=== PATIENT | female | born 1955 | race Caucasian/White ===

== ENCOUNTER 2017-09-30 09:24 | Emergency (ER) | payer MEDICARE ==
[~2017-09-30] VITALS: Ht 170.2 cm; Wt 90.3 kg
[~2017-09-30 09:24] MED LIST: AMITIZA24 MCG PO; AMLODIPINE BESY10 MG PO; ASPIRIN CHEW81 MG PO; ATORVASTATIN CA20 MG PO; BACTRIM DS TAB1 EACH PO; CARAFATE1 GM PO; CLOMIPRAMINE HC50 MG PO; CLONAZEPAM2 MG PO; CLONIDINE HCL0.1 MG PO; DICYCLOMINE HCL20 MG PO; DIVALPROEX SOD500 MG PO; ENALAPRIL MALEA20 MG PO; FOLIC ACID1 MG PO; FUROSEMIDE40 MG PO; GLUCOPHAGE500 MG PO; KLONOPIN2 MG PO; METOCLOPRAMIDE10 MG PO; MOTRIN200 MG PO; NASONEX17 GM; ONDANSETRON ODT8 MG PO; OXYBUTYNIN CHLO10 MG; PANTOPRAZOLE SO40 MG PO; PROBIOTIC FORM1 EACH PO; SERTRALINE HCL100 MG PO; SULFASALAZINE500 MG PO; SYNTHROID50 MCG PO; TRAZODONE HCL100 MG PO; TRICOR145 MG PO; VASOTEC10 MG PO; VASOTEC5 MG PO; ZOFRAN ODT4 MG SL
[2017-09-30 11:44] LABS: BILIRUBIN,URINE NEGATIVE (NEGATIVE); KETONES,URINE NEGATIVE (NEGATIVE); LEUKOCYTE ESTERASE ,URINE NEGATIVE (NEGATIVE); NITRITE,URINE NEGATIVE (NEGATIVE); PROTEIN,URINE DIPSTICK NEGATIVE (NEGATIVE); URINE UROBILINOGEN 0.2 mg/dL (0.2 - 1)
[2017-09-30 12:00] LABS: CLARITY,URINE CLEAR (CLEAR); COLOR,URINE YELLOW (YELLOW); EPITHELIAL CELLS,URINE RARE /LPF; RBC,URINE 0-5 /HPF (0-5)
--- NOTE | 2017-09-30 13:13 | Diagnostic Imaging Report ---
PROCEDURE: CT ABDOMEN AND PELVIS WITHOUT CONTRAST COMPARISON:None. INDICATIONS:Right flank pain. TECHNIQUE: Stone protocol Volumetric CT abdomen and pelvis. No intravenous or enteric contrast. Multiplanar reformatted images. DLP: 736.18 FINDINGS: Clear lung bases. No pleural effusions. Normal heart size. Marked right coronary calcification. Liver: Normal Gallbladder: Cholecystectomy. No bile duct dilation. Pancreas: Normal Spleen: Normal Adrenal glands: Normal Ureters and urinary bladder: Normal Uterus and adnexa: Normal Right kidney: 6 mm right superior pole nonobstructed nephrolithiasis. Otherwise, normal. Left kidney: 4 and 3 mm nonobstructive nephrolithiasis at the left mid and inferior pole respectively. 1.6 cm mid pole cyst. Other low attenuation nodule statistically in keeping with cysts, but too small to characterize. Otherwise, normal. Bowel: Normal caliber. Mild sigmoid diverticulosis. Peritoneum: Normal Vasculature: Normal caliber. Mild atherosclerosis of the abdominal aorta. Moderate atherosclerosis of the proximal SMA and renal artery ostia. Less than 1 cm coarsely calcified splenic artery aneurysm (image 96, series 400). Lymph nodes: Normal Skeleton: Acutely intact. Mild multilevel degenerative disc disease and facet arthropathy. L1 superior endplate degenerative change versus chronic insufficiency fracture. Soft tissues: Normal CONCLUSION: 1. Bilateral nonobstructive nephrolithiasis without acute abnormality. Largest stone 6 mm on the right and 4 mm on the left 2. Diverticulosis. Dictated by: Elías Smith M.D. on 09/30/2017 at 13:22 Electronically approved by: Elías Smith M.D. on 09/30/2017 at 13:22
[2017-09-30] MEDS ORDERED: CLONIDINE HCL 0.1 MG TAB ONE (13:35)
[2017-09-30] MEDS ORDERED: CLONIDINE HCL 0.1 MG TAB PO ONE (13:45)
[2017-09-30 13:59] LABS: BASOPHILS % 0.6 % (0.0-1.0); EOSINOPHILS # (AUTO) 0.2 (0.0-0.4); EOSINOPHILS % 2.8 % (0.0-6.0); HEMATOCRIT 36.6 % (34.2-44.1); LYMPHOCYTES % 31.4 % (18.0-39.1); MEAN CORPUSCULAR HGB CONC 32.8 g/dL (31-35); MEAN CORPUSCULAR VOLUME 85.5 fL (81-99); MONOCYTES # (AUTO) 0.4 (0.2-0.8); MONOCYTES % 6.5 % (4.4-11.3); NEUTROPHILS # (AUTO) 3.8 (2.1-6.9); NEUTROPHILS % 58.2 % (38.7-80.0); PLATELET COUNT 280 x10e3/uL (140-360); RED BLOOD COUNT 4.28 x10e6/uL (3.6-5.1)
[2017-09-30 14:24] LABS: ALANINE AMINOTRANSFERASE 15 IU/L (0-55); ALBUMIN 3.9 g/dL (3.5-5.0); ALKALINE PHOSPHATASE 101 IU/L (40-150); ANION GAP 12.8 mmol/L (8-16); BLOOD UREA NITROGEN 18 mg/dL (7-26); BUN/CREATININE RATIO 21 (6-25); CALCIUM 9.2 mg/dL (8.4-10.2); CARBON DIOXIDE 28 mmol/L (22-29); CHLORIDE 102 mmol/L (98-107); CREATININE, SERUM 0.86 mg/dL (0.57-1.11); EST GLOMERULAR FILTRATION RATE > 60 ML/MIN (60-); GLUCOSE 143 mg/dL (74-118); POTASSIUM 3.8 mmol/L (3.5-5.1); SODIUM 139 mmol/L (136-145)
[2017-09-30] MEDS ORDERED: HYDROMORPHONE 1MG/1ML INJ IV STA (16:08)
[2017-09-30] MEDS ORDERED: ONDANSETRON HCL INJ 2 MG/ML VIAL IV STA (16:08)
[2017-09-30 16:32] VITALS: BP 183/92
== END 2017-09-30 16:40 | disposition home or self-care (01) ==
LOC: ER 09:24
DX: M54.5 Low back pain (principal); N20.0 Calculus of kidney; I10 Essential (primary) hypertension; E11.9 Type 2 diabetes mellitus without complications; E03.9 Hypothyroidism, unspecified; G40.909 Epilepsy, unspecified, not intractable, without status epilepticus
CPT/HCPCS: 36415; 74176; 80053; 81001; 85025; 87086; 99284; J1170; J2405

== ENCOUNTER 2017-10-04 12:53 | Emergency (ER) | payer MEDICARE ==
[~2017-10-04] VITALS: Ht 170.2 cm; Wt 89.8 kg
[2017-10-04] MEDS ORDERED: KETOROLAC TROMETHAMINE 60 MG/2 ML VIAL IM ONE (15:00)
[2017-10-04 16:05] VITALS: BP 168/96
--- NOTE | 2017-10-04 17:35 | Diagnostic Imaging Report ---
Examination: Single AP view of the chest. COMPARISON: Single chest 05/26/2017 INDICATION: None. IMPRESSION: 1. Lines and Tubes: None 2. Lungs are grossly clear. No consolidation or effusion. 3. Cardiomediastinal silhouette is normal. Pulmonary vasculature is normal. 4. No acute bony abnormalities. Signed by: Dr. Anil Leach M.D. on 10/04/2017 5:32 PM
== END 2017-10-04 16:10 | disposition home or self-care (01) ==
LOC: ER 12:53
DX: R05 Cough (principal); J09.X2 Influenza due to identified novel influenza A virus with other respiratory manifestations; I10 Essential (primary) hypertension; E11.9 Type 2 diabetes mellitus without complications; E03.9 Hypothyroidism, unspecified
CPT/HCPCS: 71010; 87400; 96372; 99283; J1885

== ENCOUNTER 2018-03-26 13:10 | Observation (INO) | payer MEDICARE ==
[~2018-03-26] VITALS: Ht 170.2 cm; Wt 87.1 kg
[2018-03-26] MEDS ORDERED: SODIUM CHLORIDE 0.9% 1000ML 1,000 ML IV STA (13:20)
[2018-03-26 14:18] LABS: BASOPHILS % 0.7 % (0.0-1.0); EOSINOPHILS # (AUTO) 0.3 (0.0-0.4); EOSINOPHILS % 5.3 % (0.0-6.0); HEMATOCRIT 32.4 % (34.2-44.1); HEMOGLOBIN 10.4 g/dL (12.0-16.0); LYMPHOCYTES # (AUTO) 1.8 (1.0-3.2); LYMPHOCYTES % 31.2 % (18.0-39.1); MEAN CORPUSCULAR HEMOGLOBIN 28.7 pg (28-32); MEAN CORPUSCULAR HGB CONC 32.1 g/dL (31-35); MEAN CORPUSCULAR VOLUME 89.3 fL (81-99); MONOCYTES # (AUTO) 0.5 (0.2-0.8); MONOCYTES % 7.8 % (4.4-11.3); NEUTROPHILS # (AUTO) 3.2 (2.1-6.9); NEUTROPHILS % 54.3 % (38.7-80.0); PLATELET COUNT 278 x10e3/uL (140-360); RED BLOOD COUNT 3.63 x10e6/uL (3.6-5.1); RED CELL DISTRIBUTION WIDTH 13.1 % (11.7-14.4)
--- NOTE | 2018-03-26 14:20 | Diagnostic Imaging Report ---
EXAMINATION: CHEST SINGLE (PORTABLE) INDICATION: Overdose. COMPARISON: Chest x-ray 10/04/2017 FINDINGS: AP view TUBES and LINES: None. LUNGS: Lungs are not well inflated. Perihilar vascular crowding. There is no evidence of pneumonia or pulmonary edema. PLEURA: No pleural effusion or pneumothorax. HEART AND MEDIASTINUM: The cardiomediastinal silhouette is unremarkable. There are atherosclerotic calcifications within the aorta. BONES AND SOFT TISSUES: No acute osseous lesion. Soft tissues are unremarkable. UPPER ABDOMEN: No free air under the diaphragm. IMPRESSION: Hypoinflated lungs with perihilar vascular crowding. Signed by: Dr. Adalberto Gunderson M.D. on 03/26/2018 2:17 PM
[2018-03-26 14:24] LABS: BILIRUBIN,URINE NEGATIVE (NEGATIVE); CLARITY,URINE SL CLOUDY (CLEAR); COLOR,URINE YELLOW (YELLOW); KETONES,URINE NEGATIVE (NEGATIVE); LEUKOCYTE ESTERASE ,URINE NEGATIVE (NEGATIVE); NITRITE,URINE NEGATIVE (NEGATIVE); PROTEIN,URINE DIPSTICK NEGATIVE (NEGATIVE); URINE UROBILINOGEN 0.2 mg/dL (0.2 - 1)
[2018-03-26 14:25] LABS: AMPHETAMINES SCREEN,URINE NEGATIVE (NEGATIVE); BENZODIAZEPINES SCREEN,URINE POSITIVE (NEGATIVE); PHENCYCLIDINE SCREEN,URINE NEGATIVE (NEGATIVE)
[2018-03-26 14:32] LABS: BACTERIA,URINE FEW /HPF; EPITHELIAL CELLS,URINE MODERATE /LPF; MUCUS,URINE MODERATE (RARE); RBC,URINE 0-5 /HPF (0-5); WBC,URINE (MAN) 0-5 /HPF (0-5)
[2018-03-26 14:38] LABS: ALANINE AMINOTRANSFERASE 11 IU/L (0-55); ALBUMIN/GLOBULIN RATIO 1.2 (0.8-2.0); ALKALINE PHOSPHATASE 54 IU/L (40-150); BLOOD UREA NITROGEN 35 mg/dL (7-26); BUN/CREATININE RATIO 22 (6-25); CALCIUM 9.3 mg/dL (8.4-10.2); CARBON DIOXIDE 21 mmol/L (22-29); CHLORIDE 105 mmol/L (98-107); CREATINE KINASE 23 IU/L (29-168); CREATININE, SERUM 1.57 mg/dL (0.57-1.11); EST GLOMERULAR FILTRATION RATE 33 ML/MIN (60-); GLUCOSE 147 mg/dL (74-118); LIPASE 54 U/L (8-78); MAGNESIUM 1.7 MG/DL (1.3-2.1); SODIUM 138 mmol/L (136-145)
[2018-03-26 14:52] LABS: INR 1.15; PROTHROMBIN TIME 13.8 seconds (11.9-14.5)
[2018-03-26 14:53] LABS: PARTIAL THROMBOPLASTIN TIME 33.6 seconds (23.8-35.5)
[2018-03-26 14:57] LABS: THYROID STIMULATING HORMONE 2.733 uIU/mL (0.350-4.940); VALPROIC ACID < 2 ug/mL (50-100)
[2018-03-26] MEDS ORDERED: DEXTROSE 50% SYRINGE 50 ML IV PRN (16:30)
[2018-03-26] MEDS ORDERED: ONDANSETRON HCL INJ 2 MG/ML VIAL IV PRN (16:30)
[2018-03-26] MEDS: SODIUM CHLORIDE 0.9% 1000ML 1,000 ML IV SCH (16:41)
[2018-03-26] MEDS: SODIUM CHLORIDE 0.9% IV SCH (16:42)
[2018-03-26] MEDS: VALPROATE SOD IV SCH (16:42)
[2018-03-26 16:54] LABS: HYPOCHROMASIA SLIGHT; PLATELET ESTIMATE ADEQUATE; PLATELET MORPHOLOGY COMMENT RARE EDTA CLUMPING; RBC MORPHOLOGY COMMENT NORMAL
[2018-03-26] MEDS: INSULIN REGULAR, HUMAN 100 UNIT/1 ML 3ML VIAL SQ SCH ×2 (16:55→21:00)
[2018-03-26 18:15] VITALS: BP 198/92
[2018-03-26 18:20] VITALS: BP 198/92
[2018-03-26 20:00] VITALS: BP 172/87
[2018-03-26] MEDS ORDERED: ENALAPRIL MALEATE 10 MG TAB PO SCH (21:00)
[2018-03-27] VITALS: BP 163/76
[2018-03-27] MEDS: DIPHENHYDRAMINE HCL 25 MG CAP PO PRN ×2 (00:37→08:55)
[2018-03-27] MEDS: SODIUM CHLORIDE 0.9% 1000ML 1,000 ML IV SCH ×2 (00:55→05:38)
[2018-03-27 01:19] LABS: CREATINE KINASE MB 0.5 ng/mL (0-5.0)
[2018-03-27 04:00] VITALS: BP 194/92
[2018-03-27 06:57] LABS: BASOPHILS % 0.5 % (0.0-1.0); EOSINOPHILS # (AUTO) 0.5 (0.0-0.4); EOSINOPHILS % 8.3 % (0.0-6.0); HEMATOCRIT 28.4 % (34.2-44.1); HEMOGLOBIN 9.4 g/dL (12.0-16.0); LYMPHOCYTES % 33.6 % (18.0-39.1); MEAN CORPUSCULAR HEMOGLOBIN 28.9 pg (28-32); MEAN CORPUSCULAR HGB CONC 33.1 g/dL (31-35); MEAN CORPUSCULAR VOLUME 87.4 fL (81-99); MONOCYTES # (AUTO) 0.5 (0.2-0.8); MONOCYTES % 8.1 % (4.4-11.3); NEUTROPHILS % 49.2 % (38.7-80.0); PLATELET COUNT 290 x10e3/uL (140-360); RED BLOOD COUNT 3.25 x10e6/uL (3.6-5.1); RED CELL DISTRIBUTION WIDTH 13.1 % (11.7-14.4)
[2018-03-27 07:02] VITALS: BP 181/89
[2018-03-27 07:19] LABS: ANION GAP 13.5 mmol/L (8-16); CALCIUM 8.9 mg/dL (8.4-10.2); CREATININE, SERUM 1.05 mg/dL (0.57-1.11); POTASSIUM 4.5 mmol/L (3.5-5.1)
[2018-03-27] MEDS: INSULIN REGULAR, HUMAN 100 UNIT/1 ML 3ML VIAL SQ SCH ×2 (07:30→11:30)
[2018-03-27 07:42] VITALS: BP 181/89
[2018-03-27 07:43] LABS: CREATINE KINASE MB 0.4 ng/mL (0-5.0)
[2018-03-27] MEDS: VALPROATE SOD IV SCH (08:55)
[2018-03-27] MEDS: SODIUM CHLORIDE 0.9% IV SCH (08:55)
[2018-03-27] MEDS ORDERED: DEPAKOTE DELAYED-RELEASE TAB 500 MG PO SCH ×2 (09:00)
[2018-03-27] MEDS ORDERED: CLONIDINE HCL 0.1 MG TAB PO SCH (09:00)
[2018-03-27] MEDS ORDERED: FUROSEMIDE 40 MG TAB PO SCH (09:00)
[2018-03-27 11:54] VITALS: BP 105/73
--- NOTE | 2018-03-27 15:23 | Discharge Summary ---
PAM YANG, LENGTH 4:48 JANUARY CORREA MD Job#: [id number] [place]
--- NOTE | 2018-03-27 15:41 | History and Physical ---
ADMITTING DIAGNOSES 1. Syncope. 2. Hypotension. 3. Acute renal failure. 4. Seizure disorder. 5. Polysubstance abuse. DISCHARGE DIAGNOSES 1. Near syncope, resolved. 2. Hypotension, resolved. 3. Hypertensive heart disease. 4. Acute renal failure, resolved. 5. Polysubstance abuse. 6. Seizure disorder. 7. Subtherapeutic Depakote level. HOSPITAL COURSE/HISTORY OF PRESENT ILLNESS: This is a 62-year-old white woman who presented to [facility] emergency room with complaints of altered mentation, as well as 2 episodes of near syncope. The most recent episode occurred on the day of admission, and the previous episode was 2 days prior to admission at her psychiatrist's office. The patient states she never actually lost consciousness, but felt very lightheaded and weak, which caused her to fall to the floor. The patient states she does have a history of seizure disorder. The patient is currently on Depakote. However, in the emergency room the patient was found to have a Depakote level of less than 2. Urine toxicology, however, was positive for opiates, methamphetamines, benzodiazepines, and cocaine. The patient is not being prescribed any opiates or methamphetamines, but is on clonazepam for anxiety disorder. On admission, the patient was found to have a BUN and creatinine of 35 and 1.57 respectively. On the day of discharge, the patient's BUN and creatinine were 26 and 1.05 respectively. During the hospitalization, the patient did receive intravenous fluids. On admission, the patient's blood pressure was 88/54. On the day of discharge, it was 180/90, but this was after receiving intravenous fluids for over 24 hours. The patient underwent a chest x-ray in the emergency room on admission that revealed hypoinflated lungs with perihilar vascular crowding, otherwise unremarkable. The patient's brief hospitalization was unremarkable. The patient's mental status returned to baseline prior to discharge. REVIEW OF SYSTEMS GENERAL: Weight has been stable. No fever or chills. HEENT: No headaches. No visual changes. CARDIOVASCULAR/RESPIRATORY: The patient states that 2 days prior to admission and on the day of admission she had an episode of near syncope. Denies any chest pain or tightness. She also denies any coughing. GI: No nausea, vomiting, constipation. : No UTI symptoms. NEUROMUSCULAR: The patient states she has a history of seizure disorder, but denies any recent seizure-like activity. As previously stated, she had 2 episodes of near syncope within the last week. FAMILY HISTORY: Father of a stroke, and he had atherosclerosis. Mother had type 2 diabetes mellitus. SURGICAL HISTORY 1. Abdominal hernia. 2. Bilateral total knee replacement. SOCIAL HISTORY: This woman is single. She is unemployed and receiving disability benefits. She lives at her home with her adult son and [id number]. The patient states she does not smoke tobacco or drink alcohol. She also denies using any illicit drugs. ALLERGIES 1. METHADONE. 2. MORPHINE. PAST MEDICAL HISTORY 1. Seizure disorder. 2. Obesity. 3. Anxiety disorder. 4. Major depressive disorder. 5. Hypertensive heart disease. 6. GERD. 7. Hypertriglyceridemia. MEDICATIONS 1. Atorvastatin 20 mg at bedtime. 2. Clonazepam 2 mg daily. 3. Clonidine 0.1 mg 2 pills daily. 4. Depakote 500 mg b.i.d. (the patient states she is only taking this medication once a day). 5. Enalapril 20 mg in the morning and 10 mg at night. 6. Fenofibrate 20 mg b.i.d. 7. Folic acid 1 mg daily. 8. Furosemide 20 mg daily. 9. Levothyroxine 50 mcg a day. 10. Metformin 500 mg b.i.d. 11. Metoclopramide 200 mg q.i.d. 12. Ondansetron 4 mg sublingual every 6 hours p.r.n. nausea or vomiting. 13. Pantoprazole 40 mg daily. 14. Sertraline 150 mg at bedtime. 15. Trazodone 200 mg at bedtime. PHYSICAL EXAMINATION GENERAL: She is awake, alert and fully oriented. No distress. Apparently, in the emergency room she was excessively somnolent. VITALS: The patient's height is 5 feet 3 inches, weight 192 pounds. BMI 30. Blood pressure at this time is 180/90 at 7 o'clock this morning, and currently at noon it is 100/70, heart rate 66, respiratory rate 18, temperature 97.5, oxygen saturation 96% on room air. INTEGUMENT: Skin is warm and dry. No pallor or diaphoresis appreciated. HEENT: Anicteric sclerae. Moist mucous membranes. NECK: Supple. No evidence of jugular venous distention. CARDIOVASCULAR: Distant heart sounds. Regular rate and rhythm. S4 gallop. LUNGS: No rales. No rhonchi or wheezing. ABDOMEN: Benign. EXTREMITIES: No edema or deformity. Evidence of obesity. NEUROLOGIC: No gross focal deficits appreciated. DISCHARGE DIAGNOSES 1. Near syncope, resolved. 2. Hypotension, resolved. 3. Acute renal failure, resolved. 4. Seizure disorder. 5. Subtherapeutic Depakote level. 6. Polysubstance abuse. PLAN 1. I highly recommend the patient avoid all illicit drugs. 2. Will decrease enalapril from twice a day to just once a day, 10 mg at night. 3. Increase Depakote from 500 mg daily to twice a day for seizure disorder. 4. Stop intravenous fluids. Discontinue Malhotra catheter. 5. Discontinue telemetry monitoring. 6. Recommend the patient follow up with primary care physician, namely Dr. Katherine Cannon within 1 week. I spent 45 minutes in the care of the patient. Job#: [id number] [place] cc: KATHERINE CANNON MD MTDD
[2018-03-27 15:52] VITALS: BP 143/80
== END 2018-03-27 16:22 | disposition home or self-care (01) ==
LOC: ER 13:10 → ERHOLD 16:25 → MED/SURG3 17:29
PROVIDERS: ADMIT Internal Medicine; ATTEND Internal Medicine
DX: I95.1 Orthostatic hypotension (principal); I95.9 Hypotension, unspecified; G40.909 Epilepsy, unspecified, not intractable, without status epilepticus; N17.9 Acute kidney failure, unspecified; I11.9 Hypertensive heart disease without heart failure; F14.10 Cocaine abuse, uncomplicated; F15.10 Other stimulant abuse, uncomplicated; F11.10 Opioid abuse, uncomplicated; Z96.653 Presence of artificial knee joint, bilateral; Z88.5 Allergy status to narcotic agent
CPT/HCPCS: 36415 ×2; 51700; 71045; 80048; 80053; 80164 ×2; 80307; 81001; 82550 ×2; 82553 ×2; 82948 ×2; 83605; 83690; 83735; 84443; 84484 ×2; 85025 ×2; 85610; 85730; 87040; 87086; 93005; 96361; 99284; G0378 ×2; J7030 ×2

== ENCOUNTER 2022-07-22 22:36 | Observation (INO) | payer MEDICARE ==
[~2022-07-22] VITALS: Ht 170.2 cm; Wt 74.6 kg
[2022-07-22] MEDS ORDERED: SODIUM CHLORIDE 0.9% 1000ML 1,000 ML IV STA ×2 (22:41→22:50)
[2022-07-22] MEDS ORDERED: NALOXONE HCL 2MG/2 ML SYRINGE IV ONE (22:45)
[2022-07-22 23:06] LABS: BASOPHILS # (AUTO) 0.1 (0.0-0.1); BASOPHILS % 0.7 % (0.0-1.0); EOSINOPHILS # (AUTO) 0.2 (0.0-0.4); EOSINOPHILS % 2.6 % (0.0-6.0); HEMATOCRIT 33.4 % (34.2-44.1); HEMOGLOBIN 10.2 g/dL (12.0-16.0); LYMPHOCYTES % 34.3 % (18.0-39.1); MEAN CORPUSCULAR HGB CONC 30.5 g/dL (31-35); MEAN CORPUSCULAR VOLUME 98.2 fL (81-99); MONOCYTES % 11.9 % (4.4-11.3); NEUTROPHILS # (AUTO) 4.4 (2.1-6.9); NEUTROPHILS % 50.2 % (38.7-80.0); PLATELET COUNT 259 x10e3/uL (140-360); RED CELL DISTRIBUTION WIDTH 12.8 % (11.7-14.4)
[2022-07-22 23:28] LABS: ALBUMIN 3.8 g/dL (3.5-5.0); ANION GAP 17.8 mmol/L (8-16); CALCIUM 9.1 mg/dL (8.4-10.2); CREATININE, SERUM 0.99 mg/dL (0.57-1.11); POTASSIUM 4.8 mmol/L (3.5-5.1)
[2022-07-22 23:34] LABS: CREATINE KINASE MB 1.3 ng/mL (0-5.0)
[2022-07-23] VITALS (22 sets, daily range): BP systolic 78–133; BP diastolic 44–76
[2022-07-23] MEDS ORDERED: SODIUM CHLORIDE 0.9% 1000ML 1,000 ML IV STA (00:30)
[2022-07-23] MEDS: SODIUM CHLORIDE 0.9% 1000ML 1,000 ML IV SCH ×4 (03:11→21:47)
[2022-07-23] MEDS ORDERED: ACETAMINOPHEN 325 MG TAB PO PRN (03:15)
[2022-07-23 06:34] LABS: BASOPHILS % 0.5 % (0.0-1.0); EOSINOPHILS # (AUTO) 0.2 (0.0-0.4); EOSINOPHILS % 3.4 % (0.0-6.0); HEMATOCRIT 31.3 % (34.2-44.1); HEMOGLOBIN 10.3 g/dL (12.0-16.0); LYMPHOCYTES # (AUTO) 2.2 (1.0-3.2); LYMPHOCYTES % 34.1 % (18.0-39.1); MEAN CORPUSCULAR HEMOGLOBIN 30.2 pg (28-32); MEAN CORPUSCULAR HGB CONC 32.9 g/dL (31-35); MEAN CORPUSCULAR VOLUME 91.8 fL (81-99); MONOCYTES # (AUTO) 0.8 (0.2-0.8); MONOCYTES % 12.9 % (4.4-11.3); NEUTROPHILS # (AUTO) 3.1 (2.1-6.9); NEUTROPHILS % 48.8 % (38.7-80.0); RED BLOOD COUNT 3.41 x10e6/uL (3.6-5.1); RED CELL DISTRIBUTION WIDTH 12.9 % (11.7-14.4)
[2022-07-23 06:37] LABS: PLATELET COUNT 191 x10e3/uL (140-360)
[2022-07-23 06:59] LABS: ALBUMIN 3.1 g/dL (3.5-5.0); ALBUMIN/GLOBULIN RATIO 1.1 (0.8-2.0); ALKALINE PHOSPHATASE 84 IU/L (40-150); ANION GAP 13.5 mmol/L (8-16); BLOOD UREA NITROGEN 18 mg/dL (7-26); BUN/CREATININE RATIO 23 (6-25); CALCIUM 8.1 mg/dL (8.4-10.2); CARBON DIOXIDE 20 mmol/L (22-29); CHLORIDE 115 mmol/L (98-107); CREATININE, SERUM 0.77 mg/dL (0.57-1.11); GLUCOSE 91 mg/dL (74-118); POTASSIUM 3.5 mmol/L (3.5-5.1); SODIUM 145 mmol/L (136-145)
[2022-07-23 07:03] LABS: ALANINE AMINOTRANSFERASE < 6 IU/L (0-55)
[2022-07-23 08:58] LABS: AMPHETAMINES SCREEN,URINE POSITIVE (NEGATIVE); PHENCYCLIDINE SCREEN,URINE NEGATIVE (NEGATIVE)
[2022-07-23] MEDS ORDERED: DOCUSATE SODIUM 100 MG CAP PO PRN (09:00)
[2022-07-23 09:03] LABS: BENZODIAZEPINES SCREEN,URINE NEGATIVE (NEGATIVE)
[2022-07-23 09:22] LABS: CLARITY,URINE CLEAR (CLEAR); COLOR,URINE YELLOW (YELLOW); KETONES,URINE NEGATIVE (NEGATIVE); LEUKOCYTE ESTERASE ,URINE NEGATIVE (NEGATIVE); NITRITE,URINE NEGATIVE (NEGATIVE); PROTEIN,URINE DIPSTICK NEGATIVE (NEGATIVE); URINE UROBILINOGEN 0.2 mg/dL (0.2 - 1)
[2022-07-23 09:34] LABS: BACTERIA,URINE RARE /HPF; EPITHELIAL CELLS,URINE FEW /LPF; RBC,URINE 0-5 /HPF (0-5); TRANSITIONAL EPI CELLS,URINE RARE; WBC,URINE (MAN) 0-5 /HPF (0-5)
[2022-07-23] MEDS: FOLIC ACID 1 MG TAB PO SCH (09:46)
[2022-07-23] MEDS: MULTIVITAMINS/MINERALS TAB PO SCH (09:46)
[2022-07-23] MEDS: LEVOTHYROXINE SODIUM 50 MCG TAB PO SCH (09:46)
[2022-07-23] MEDS: DEPAKOTE DELAYED-RELEASE TAB 500 MG PO SCH ×2 (09:46→16:49)
[2022-07-23] MEDS: PANTOPRAZOLE SOD 40 MG TABEC PO SCH (09:46)
[2022-07-23 10:35] LABS: CHOL/HDL RATIO 4.8 (3.0-3.6)
[2022-07-23] MEDS: ACETAMINOPHEN 325 MG TAB PO PRN (16:50)
[2022-07-23] MEDS ORDERED: SERTRALINE HCL 50 MG TAB PO SCH (21:00)
[2022-07-24] MEDS: ACETAMINOPHEN 325 MG TAB PO PRN ×2 (02:21→09:21)
[2022-07-24 04:36] VITALS: BP 123/66
[2022-07-24] MEDS: LEVOTHYROXINE SODIUM 50 MCG TAB PO SCH (06:02)
[2022-07-24] MEDS: PANTOPRAZOLE SOD 40 MG TABEC PO SCH (07:22)
[2022-07-24 07:30] VITALS: BP 121/58
[2022-07-24 08:00] VITALS: BP 105/75
[2022-07-24] MEDS: MULTIVITAMINS/MINERALS TAB PO SCH (08:09)
[2022-07-24] MEDS: DEPAKOTE DELAYED-RELEASE TAB 500 MG PO SCH (08:09)
[2022-07-24] MEDS: FOLIC ACID 1 MG TAB PO SCH (08:09)
[2022-07-24 08:16] VITALS: BP 105/75
[2022-07-24] MEDS: SODIUM CHLORIDE 0.9% 1000ML 1,000 ML IV SCH (09:20)
== END 2022-07-24 13:45 | disposition home or self-care (01) ==
LOC: ER 22:48 → ERHOLD 23:37 → ICU 07-23 03:05
PROVIDERS: ADMIT Internal Medicine; ATTEND Internal Medicine
DX: G92.8 Other toxic encephalopathy (principal); F15.90 Other stimulant use, unspecified, uncomplicated; D64.9 Anemia, unspecified; M54.50 Low back pain, unspecified; E86.0 Dehydration; F11.10 Opioid abuse, uncomplicated; I10 Essential (primary) hypertension; Z59.00 Homelessness unspecified; E11.9 Type 2 diabetes mellitus without complications; E03.9 Hypothyroidism, unspecified; F41.9 Anxiety disorder, unspecified; F32.A Depression, unspecified; E78.5 Hyperlipidemia, unspecified; E87.20 Acidosis, unspecified; M25.562 Pain in left knee; M25.561 Pain in right knee; Z88.5 Allergy status to narcotic agent; Z20.822 Contact with and (suspected) exposure to COVID-19; Z90.49 Acquired absence of other specified parts of digestive tract; Z91.81 History of falling; Z96.653 Presence of artificial knee joint, bilateral; Z82.3 Family history of stroke; Z83.3 Family history of diabetes mellitus; Z79.84 Long term (current) use of oral hypoglycemic drugs
CPT/HCPCS: 36415 ×2; 70450; 72131; 80053 ×2; 80061; 80307; 80320; 81001; 82140; 82550; 82553; 82948; 83036; 84484; 85025 ×2; 93005; 97116; 97162; 99251; 99284; G0378 ×3; J2310; J7030 ×3; S0164 ×2; U0002